=== PATIENT | male | born 1945 | race Hispanic/Latino ===

== ENCOUNTER 2019-01-20 10:46 | Outpatient (CLI) | payer MEDICARE ==
[2019-01-20 12:25] LABS: Alanine Aminotransferase 33 units/L (7-56); Albumin 4.4 g/dL (3.9-5)
[2019-01-20 12:26] LABS: Bilirubin,Direct < 0.2 mg/dL (0-0.2)
[2019-01-20 12:27] LABS: Chol/HDL Ratio 2.06 %; Uric Acid 6.6 mg/dL (3.5-7.6)
[2019-01-23 14:10] LABS: Vitamin D, 25-OH, D2 <4 ng/mL
== END 2019-01-20 10:47 | disposition home or self-care (01) ==
LOC: LAB 10:46
PROVIDERS: ATTEND Internal Medicine
DX: Z13.220 Encounter for screening for lipoid disorders (principal); Z13.1 Encounter for screening for diabetes mellitus; I10 Essential (primary) hypertension; M18.9 Osteoarthritis of first carpometacarpal joint, unspecified; R79.89 Other specified abnormal findings of blood chemistry
CPT/HCPCS: 36415; 80061; 80076; 82306; 83036; 84550

== ENCOUNTER 2019-04-28 11:23 | Outpatient (CLI) | payer MEDICARE ==
[2019-04-28 12:08] LABS: Hematocrit 45.2 % (35.5-45.6); Hemoglobin 15.8 gm/dl (11.8-15.2); Mean Corpuscular HGB Conc 35 % (32-34); Mean Corpuscular Volume 93 fl (84-94); Platelet Count 196 K/mm3 (140-440); Red Blood Count 4.88 M/mm3 (3.65-5.03)
[2019-04-28 13:25] LABS: Alanine Aminotransferase 26 units/L (7-56); Albumin 4.9 g/dL (3.9-5); BUN/Creatinine Ratio 22; Blood Urea Nitrogen 24 mg/dL (9-20); Calcium 9.8 mg/dL (8.4-10.2); Chol/HDL Ratio 2.38 %; HDL Cholesterol 84 mg/dL (40-59); Hemolysis Index 2; LDL Cholesterol,Direct 122 mg/dL (50-130)
[2019-05-01 19:17] LABS: Vitamin D, 25-OH, D2 <4 ng/mL
== END 2019-04-28 11:24 | disposition home or self-care (01) ==
LOC: LAB 11:23
PROVIDERS: ATTEND Internal Medicine
DX: Z13.29 Encounter for screening for other suspected endocrine disorder (principal); Z13.21 Encounter for screening for nutritional disorder; E78.5 Hyperlipidemia, unspecified; R73.03 Prediabetes
CPT/HCPCS: 36415; 80053; 80061; 82306; 82607; 83036; 84443; 85027